=== PATIENT | male | born 1985 | race Caucasian/White ===

== ENCOUNTER 2018-09-13 13:16 | Emergency (ER) | payer SELFPAY ==
[2018-09-13] MEDS ORDERED: Lorazepam 2 MG/ML VIAL ONE (13:35)
== END 2018-09-13 16:15 | disposition home or self-care (01) ==
LOC: ERS 13:16
DX: F43.0 Acute stress reaction (principal); F41.9 Anxiety disorder, unspecified; Z79.899 Other long term (current) drug therapy
CPT/HCPCS: 96374; J2060